=== PATIENT | female | born 1985 | race Caucasian/White ===

== ENCOUNTER 2018-03-25 19:28 | Emergency (ER) | payer MEDICAID ==
--- NOTE | 2018-03-25 19:58 | ED ---
Syncope/Near Syncope - HPI Summary HPI Summary: This is brady Davis documenting for attending Michael Bruce MD. Patient is a 32 y/o F w c/o a syncopal episode today a couple of hours ago. 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 While at work, she was sitting on a couch talking to another person. She suddenly lost consciousness. The patient states the other individual told her she was out between 10-12 minutes. The patient remembers the conversation before LOC and denies experiencing any dizziness or GARRIDO prior to LOC. When she woke up, she states she was A&Ox3 but her head felt, "fuzzy". and felt SOB. She called her boss who told her to go to the ED. She took a cab. In the room she denies chest pain, palpitations, SOB but notes she feels "off balance". This is her first seizure. PMHx of anxiety and panic attacks but denies HTN and diabetes. PMHx is denied. FMHx of cancer, cardiac disease, renal disease, diabetes is noted. Patient states she smokes a pack a day, drinks socially, and denies drug use. Allergies and home medications are reviewed. Last menstrual period lasted 17 days, which was usual for the patient. - History Of Current Complaint Chief Complaint: EDSyncope Time Seen by Provider: 03/25/18 19:45 Hx Obtained From: Patient Onset/Duration: Sudden Onset Timing: Minutes - 10-12 minutes Context: Witnessed - client Activity At Onset: At Rest - sitting on couch Aggravating Factor(s): Nothing Alleviating Factor(s): Nothing Associated Signs And Symptoms: Shortness Of Breath, Other - feeling "foggy" - Allergies/Home Medications Allergies/Adverse Reactions: Allergies Allergy/AdvReac Type Severity Reaction Status Date / Time Penicillins Allergy Anaphylatic Verified 03/25/18 19:35 Shock Home Medications: Home Medications Control 1 tab PO DAILY 03/25/18 [History Confirmed 03/25/18] PMH/Surg Hx/FS Hx/Imm Hx Endocrine/Hematology History: Denies: Hx Diabetes Cardiovascular History: Denies: Hx Hypertension Sensory History: Denies: Hx Legally Blind Psychiatric History: Reports: Hx Anxiety, Hx Panic Disorder - panic attacks - Surgical History Surgery Procedure, Year, and Place: none Infectious Disease History: No Infectious Disease History: Denies: Traveled Outside the [place] in Last 30 Days - Family History Known Family History: Positive: Cardiac Disease, Diabetes, Renal Disease, Other - CA Review of Systems Negative: Palpitations, Chest Pain Respiratory: Other Positive: Shortness Of Breath - SOB after waking up, resolved in the room Neurological: Other - POSITIVE: head feels "fuzzy", feeling "off balance" NEGATIVE: dizziness Positive: Syncope. Negative: Headache All Other Systems Reviewed And Are Negative: Yes Physical Exam - Summary Physical Exam Summary: VITAL SIGNS: Reviewed. GENERAL: Patient is a well-developed and nourished female who is lying comfortable in the stretcher. Patient is not in any acute respiratory distress. HEAD AND FACE: No signs of trauma. No ecchymosis, hematomas or skull depressions. No sinus tenderness. EYES: PERRLA, EOMI x 2, No injected conjunctiva, no nystagmus. EARS: Hearing grossly intact. Ear canals and tympanic membranes are within normal limits. MOUTH: Oropharynx within normal limits. NECK: Supple, trachea is midline, no adenopathy, no JVD, no carotid bruit, no c- spine tenderness, neck with full ROM. CHEST: Symmetric, no tenderness at palpation LUNGS: Clear to auscultation bilaterally. No wheezing or crackles. CVS: Regular rate and rhythm, S1 and S2 present, no murmurs or gallops appreciated. ABDOMEN: Soft, non-tender. No signs of distention. No rebound no guarding, and no masses palpated. Bowel sounds are normal. EXTREMITIES: FROM in all major joints, no edema, no cyanosis or clubbing. NEURO: Alert and oriented x 3. No acute neurological deficits. Speech is normal and follows commands. SKIN: Dry and warm Triage Information Reviewed: Yes Vital Signs On Initial Exam: Initial Vitals Temp Pulse Resp BP Pulse Ox 97.8 F 86 20 120/72 100 03/25/18 19:35 03/25/18 19:35 03/25/18 19:35 03/25/18 19:35 03/25/18 19:35 Vital Signs Reviewed: Yes Diagnostics - Vital Signs Vital Signs Temp Pulse Resp BP Pulse Ox 03/25/18 19:35 97.8 F 86 20 120/72 100 - Laboratory Result Diagrams: 03/25/18 20:35 03/25/18 20:35 Lab Statement: Any lab studies that have been ordered have been reviewed, and results considered in the medical decision making process. - Radiology CXR Xray Interpretation: No Acute Changes Radiology Interpretation Completed By: Radiologist - No active diseases. This report was reviewed by ED physician. - EKG 1957 Cardiac Rate: NL - Rate of 79 BPM. EKG Rhythm: Sinus Rhythm EKG Interpretation: No ST elevation, normal axis Re-Evaluation - Re-Evaluation First Eval Re-Evaluation Time: 22:11 Comment: Patient states she has children at home and needs to take care of them as she is single mother. Dr. Bruce talked with her and told her that it is important she remain at [facility] for her health. She understands and will leave AMA. Course/Dx Assessment/Plan: This patient is a 32-year-old female who presents to the emergency department with a chief complaint of a syncopal episode. There was a positive loss of consciousness. Blood test results without any significant abnormality. Chest x-ray no active disease. At this time the head CT is still pending and the urine toxicology also pending. Patient reports patient is to go home because she has 2 small children that didnt need to be taken care of. The patient is a single mother and she doesnt want to stay in the hospital. I extensively discussed with the patient the benefits and risk of leaving AMA. I also discussed the alternatives to leaving AMA, however, the patient still insist to leave the hospital AMA.. The primary nurse and the charge nurse also strongly recommended that the patient should not leave AMA. Patient understands the risk of leaving AMA, which includes but is not restricted to . Patient is Alert and oriented times three and patient verbalizes understanding. Patient has full capacity and is cognitively intact. Patient signed the AMA form. Patient was also advised to return to ED if he changes his mind or if the symptoms worsen or other symptoms appear. Patient understands and agrees. - Diagnoses Provider Diagnoses: Syncope Discharge - Sign-Out/Discharge Documenting (check all that apply): Patient Departure - discharged to home against medical advice - Discharge Plan Condition: Fair Disposition: AGAINST MEDICAL ADVICE Patient Education Materials: New-Onset Seizure in Adults (ED) Referrals: [facility] [Outside] - 3 Days Additional Instructions: Return to ED for any new or worsening symptoms.
[2018-03-25] MEDS ORDERED: NS 0.9% 1000 ML* 1,000 ML IV ONE (20:02)
[2018-03-25 20:46] LABS: ABS Basophils 0.1 10^3/ul (0-0.2); ABS Eosinophils 0.1 10^3/ul (0-0.6); ABS Lymphocytes 3.9 10^3/ul (1.0-4.8); ABS Monocytes 0.9 10^3/ul (0-0.8); ABS Neutrophils 4.9 10^3/ul (1.5-7.7); ABS Nucleated RBC 0 10^3/ul; Eosinophil % 1.5 % (0-6); Hematocrit 39 % (35-47); Hemoglobin 13.4 g/dl (12.0-16.0); Lymphocyte % 39.3 % (25-47); Mean Corpuscular HGB Conc 35 g/dl (31-36); Mean Corpuscular Hemoglobin 30 pg (27-31); Mean Corpuscular Volume 86 fL (80-97); Mean Platelet Volume 7.1 um3 (7.4-10.4); Nucleated Red Blood Cells % 0.1; Platelet Count 347 10^3/ul (150-450); Red Blood Count 4.48 10^6/ul (4.00-5.40); Red Cell Distribution Width 13 % (10.5-15); White Blood Count 9.9 10^3/ul (3.5-10.8)
[2018-03-25 21:04] LABS: EGFR Non-African American 99.2 (>60)
--- NOTE | 2018-03-25 22:06 | RAD ---
INDICATION: Syncope COMPARISON: None TECHNIQUE: PA and lateral dual-energy views were obtained. FINDINGS: Bones/Soft Tissues: There are no acute bony findings. Cardiomediastinal: The cardiomediastinal silhouette is normal. Lungs: There are no infiltrates. Pleura: There are no pleural effusions. Other: None IMPRESSION: NO ACTIVE DISEASE. R1
[2018-03-25 22:30] VITALS: BP 117/73
--- NOTE | 2018-03-26 07:09 | RAD ---
INDICATION: Syncope COMPARISON: None TECHNIQUE: Noncontrast axial source images were acquired from the skull base to the vertex. FINDINGS: Ventricles/sulci: The ventricles and cisterns are normal in size and configuration for age. Brain parenchyma: There is no focal parenchymal finding, evidence of intracranial mass, or intracranial mass effect. Intracranial hemorrhage:None. Extra-axial spaces: There are no abnormal extra axial fluid collections or evidence of extra-axial mass. Calvarium: There is no calvarial fracture or other calvarial abnormality. Scalp: There is no evidence of scalp or extracalvarial soft tissue abnormality. Paranasal sinuses/mastoid: There is left sphenoid sinusitis. Other: None. IMPRESSION: No acute intracranial findings. Left sphenoid sinusitis
== END 2018-03-25 22:30 | disposition left against medical advice (07) ==
LOC: ED 19:28
DX: R55 Syncope and collapse (principal); R06.02 Shortness of breath; Z88.0 Allergy status to penicillin
CPT/HCPCS: 36415; 70450; 71046; 80053; 80320; 83605; 83735; 83880; 84443; 84484; 84702; 85025; 85379; 93005; 99283; G0480